=== PATIENT | male | born 1935 | race Caucasian/White ===

== ENCOUNTER 2016-09-20 10:54 | Outpatient (CLI) | payer MEDICARE, BC | END 2016-09-20 10:55 | disposition home or self-care (01) | DX: R63.4 Abnormal weight loss (principal); E55.9 Vitamin D deficiency, unspecified; F02.80 Dementia in other diseases classified elsewhere, unspecified severity, without behavioral disturbance, psychotic disturbance, mood disturbance, and anxiety ==

== ENCOUNTER 2016-09-24 08:57 | Outpatient (CLI) | payer MEDICARE, BC | END 2016-09-24 08:58 | disposition home or self-care (01) | DX: N20.0 Calculus of kidney (principal); R33.9 Retention of urine, unspecified ==

== ENCOUNTER 2016-09-27 15:06 | Outpatient (CLI) | payer MEDICARE, BC | END 2016-09-27 15:07 | disposition home or self-care (01) | DX: E53.8 Deficiency of other specified B group vitamins (principal) ==

== ENCOUNTER 2016-10-14 | Outpatient (CLI) | payer MEDICARE, BC | END 2016-10-14 11:35 | disposition critical access hospital (66) | CPT/HCPCS: A0425; A0427 ==

== ENCOUNTER 2016-10-14 11:59 | Observation (INO) | payer MEDICARE, BC ==
[2016-10-14] MEDS ORDERED: IOPAMIDOL-300 100 ML VIAL IVP ONE (14:10)
[2016-10-14] MEDS ORDERED: IOPAMIDOL-300 50 ML VIAL PO ONE (14:10)
[2016-10-14] MEDS ORDERED: PIPERACILLIN/TAZOBACTAM 3.375 GM in SODIUM CHLORIDE 0.9% MINIBAG 100 ML IV STA (14:42)
[2016-10-14] MEDS ORDERED: ONDANSETRON 4 MG/2 ML VIAL IVP PRN (15:23)
[2016-10-14] MEDS ORDERED: SODIUM CHLORIDE FLUSH 0.9% 10 ML SYRINGE IVP PRN (15:23)
[2016-10-14] MEDS: SODIUM CHLORIDE 0.9% 1,000 ML IV SCH (17:55)
[2016-10-14] MEDS: SODIUM CHLORIDE FLUSH 0.9% 10 ML SYRINGE IVP SCH (17:55)
[2016-10-14] MEDS ORDERED: KETOROLAC 15 MG/ML VIAL IVP PRN (17:59)
[2016-10-14] MEDS ORDERED: SODIUM CHLORIDE 0.9% 1,000 ML IV ONE (18:45)
[2016-10-14] MEDS ORDERED: PROMETHAZINE 12.5 MG TABLET PO PRN (18:50)
[2016-10-14] MEDS: MEMANTINE 5 MG TABLET PO SCH (19:15)
[2016-10-14] MEDS ORDERED: CYANOCOBALAMIN 1,000 MCG/ML VIAL IM ONE (19:15)
[2016-10-14] MEDS ORDERED: MIRTAZAPINE 7.5 MG PO SCH (21:00)
[2016-10-14] MEDS ORDERED: MIRTAZAPINE 15 MG TABLET PO SCH (21:00)
[2016-10-14] MEDS: FLUTICASONE NASAL SPRAY NAS SCH (21:04)
[2016-10-14] MEDS: FAMOTIDINE 20 MG/50 ML 50 ML IV SCH (21:04)
[2016-10-14] MEDS: ACETAMINOPHEN 325 MG TABLET PO PRN (21:05)
[2016-10-14] MEDS: TAMSULOSIN 0.4 MG CAPSULE PO SCH (21:13)
[2016-10-15] MEDS: SODIUM CHLORIDE 0.9% 1,000 ML IV SCH (02:36)
[2016-10-15] MEDS: SODIUM CHLORIDE FLUSH 0.9% 10 ML SYRINGE IVP SCH (06:17)
[2016-10-15] MEDS ORDERED: OMEGA-3 ACID ETHYL ESTERS 1 GM CAPSULE PO SCH (08:00)
[2016-10-15] MEDS: MEMANTINE 5 MG TABLET PO SCH (08:11)
[2016-10-15] MEDS: FAMOTIDINE 20 MG/50 ML 50 ML IV SCH (08:11)
[2016-10-15] MEDS: FLUTICASONE NASAL SPRAY NAS SCH (08:12)
[2016-10-15] MEDS: TAMSULOSIN 0.4 MG CAPSULE PO SCH (08:14)
[2016-10-15] MEDS: ACETAMINOPHEN 325 MG TABLET PO PRN (08:14)
[2016-10-15] MEDS ORDERED: BUPROPION HCL 100 MG PO SCH (09:00)
[2016-10-15] MEDS ORDERED: TAMSULOSIN 0.4 MG CAPSULE PO SCH (09:00)
[2016-10-15] MEDS ORDERED: POLYETHYLENE GLYCOL 3350 17 GM PACKET PO SCH (09:00)
[2016-10-16] MEDS ORDERED: ERGOCALCIFEROL 50,000 UNIT CAPSULE PO SCH (08:00)
== END 2016-10-15 12:04 | disposition home or self-care (01) ==
DX: N20.0 Calculus of kidney (principal); G30.0 Alzheimer's disease with early onset; F02.80 Dementia in other diseases classified elsewhere, unspecified severity, without behavioral disturbance, psychotic disturbance, mood disturbance, and anxiety; E55.9 Vitamin D deficiency, unspecified; R51 Headache; E86.0 Dehydration; K59.00 Constipation, unspecified; R33.9 Retention of urine, unspecified; R06.83 Snoring; Z79.1 Long term (current) use of non-steroidal anti-inflammatories (NSAID)
CPT/HCPCS: 36415; 74177; 76700; 80053; 81003; 82150; 82306; 82607; 83605; 83690; 83735; 84100; 84425; 84443; 85025; 85651; 86141; 96361; 96365; 96366; 96372; 96375; 99284; 99285; A9270; G0378; Q9967

== ENCOUNTER 2016-10-21 09:32 | Outpatient (CLI) | payer MEDICARE, BC | END 2016-10-21 09:33 | disposition home or self-care (01) | DX: I10 Essential (primary) hypertension (principal); R33.9 Retention of urine, unspecified; F32.9 Major depressive disorder, single episode, unspecified; E78.1 Pure hyperglyceridemia; N20.0 Calculus of kidney; N40.1 Benign prostatic hyperplasia with lower urinary tract symptoms ==

== ENCOUNTER 2016-10-22 | Outpatient (CLI) | payer MEDICARE, BC | END 2016-10-22 09:37 | disposition critical access hospital (66) | CPT/HCPCS: A0425; A0427 ==

== ENCOUNTER 2016-10-22 10:00 | Emergency (ER) | payer MEDICARE, BC ==
[2016-10-22] MEDS ORDERED: DEXAMETHASONE 10 MG/ML VIAL IVP STA (12:36)
[2016-10-22] MEDS ORDERED: cefTRIAXone 1 GM in SODIUM CHLORIDE 0.9% MINIBAG 100 ML IV STA (12:36)
[2016-10-22] MEDS ORDERED: DEXAMETHASONE 10 MG/ML VIAL ONE (12:38)
[2016-10-22] MEDS ORDERED: cefTRIAXone 1 GM VIAL ONE (12:38)
== END 2016-10-22 13:40 | disposition home or self-care (01) ==
DX: R55 Syncope and collapse (principal); R05 Cough; H66.003 Acute suppurative otitis media without spontaneous rupture of ear drum, bilateral; G30.9 Alzheimer's disease, unspecified; F02.80 Dementia in other diseases classified elsewhere, unspecified severity, without behavioral disturbance, psychotic disturbance, mood disturbance, and anxiety; Z87.891 Personal history of nicotine dependence

== ENCOUNTER 2016-10-26 09:22 | Outpatient (CLI) | payer MEDICARE, BC ==
[2016-10-26] MEDS ORDERED: SINCALIDE 1.3 MCG in SODIUM CHLORIDE 0.9% 100ML 100 ML IV ONE (12:35)
== END 2016-10-26 09:23 | disposition home or self-care (01) ==
DX: K31.89 Other diseases of stomach and duodenum (principal)
CPT/HCPCS: 78227; A9537

== ENCOUNTER 2016-11-03 15:04 | Outpatient (CLI) | payer MEDICARE, BC | END 2016-11-03 15:05 | disposition home or self-care (01) | DX: R51 Headache (principal) ==

== ENCOUNTER 2017-06-19 11:21 | Outpatient (CLI) | payer MEDICARE, BC ==
[2017-06-19] MEDS ORDERED: IOPAMIDOL-300 50 ML VIAL ONE (11:42)
[2017-06-19 12:27] LABS: CALCIUM 9.5 mg/dL (8.5-10.3); CREATININE 0.8 mg/dL (0.6-1.2); POTASSIUM 4.2 mmol/L (3.5-5.0)
[2017-06-19] MEDS ORDERED: IOPAMIDOL-300 100 ML VIAL ONE (12:42)
[2017-06-19] MEDS ORDERED: IOPAMIDOL-300 100 ML VIAL IVP ONE (14:07)
[2017-06-19] MEDS ORDERED: IOPAMIDOL-300 50 ML VIAL PO ONE (14:07)
--- NOTE | 2017-06-19 16:05 | CT Report ---
CT ABDOMEN WITH AND WITHOUT CONTRAST: 06/19/2017 CLINICAL INDICATION: Abdominal pain. COMPARISON: 10/14/2016 TECHNIQUE: Axial CT images of the abdomen were obtained prior to and following 100 mL Isovue-300 int ravenously. Oral contrast was also administered. In accordance with CT protocol optimization, one or more of the following dose reduction techniques w ere utilized for this exam: automated exposure control, adjustment of mA and/or KV based on patient size, or use of iterative reconstructive technique. FINDINGS: Limited evaluation of the lung bases is unremarkable. On the unenhanced images, there is bilateral nephrolithiasis present, with multiple nonobstructing ri ght renal calculi, the largest in the lower pole measuring 9 mm, and multiple nonobstructing left diana al calculi and a calculus in the ureteropelvic junction. The UPJ stone measures 8 mm. No hydronephr osis is appreciated. Bilateral cortical cysts are present. The liver, spleen, pancreas, and adrenal glands are unremarkable. The gallbladder is not dilated. No bowel dilatation, free gas, or free fl uid is present. No abdominal adenopathy is seen. Osseous structures demonstrate degenerative change s. IMPRESSION: BILATERAL NEPHROLITHIASIS AND A CALCULUS AT THE LEFT URETEROPELVIC JUNCTION, BUT NO EVID ENCE OF HYDRONEPHROSIS. NO OTHER EVIDENT ETIOLOGY FOR ABDOMINAL PAIN. :9 JOB #: [id number] EXT JOB #:[id number]
== END 2017-06-19 11:22 | disposition home or self-care (01) ==
LOC: LAB 11:21
PROVIDERS: ATTEND Family Medicine
DX: N20.2 Calculus of kidney with calculus of ureter (principal)
CPT/HCPCS: 36415; 74170; 80048; Q9967

== ENCOUNTER 2017-08-19 09:49 | Outpatient (CLI) | payer MEDICARE, BC | END 2017-08-19 09:50 | disposition critical access hospital (66) | LOC: EMS 09:49 | PROVIDERS: ATTEND Surgery | DX: R47.89 Other speech disturbances (principal); W19.XXXA Unspecified fall, initial encounter; Y92.003 Bedroom of unspecified non-institutional (private) residence as the place of occurrence of the external cause | CPT/HCPCS: A0425; A0427 ==

== ENCOUNTER 2017-08-19 10:14 | Emergency (ER) | payer MEDICARE, BC ==
[2017-08-19 11:03] LABS: BASOPHILS % (AUTO) 0.7 %; EOSINOPHILS % (AUTO) 0.4 %; HCT - HEMATOCRIT 43.6 % (42.0-52.0); HGB - HEMOGLOBIN 15.1 g/dL (14.0-18.0); LYMPHOCYTES % (AUTO) 14.2 %; MEAN CORPUSCULAR HEMOGLOBIN 31.2 pg (27.0-31.0); MEAN CORPUSCULAR HGB CONC 34.7 g/dL (32.0-36.0); MEAN PLATELET VOLUME 7.8 fL (7.4-11.4); MONOCYTES # (AUTO) 0.4 10^3/uL (0.0-1.0); MONOCYTES % (AUTO) 6.1 %; NEUTROPHILS # (AUTO) 5.7 10^3/uL (1.5-6.6); NEUTROPHILS % (AUTO) 78.6 %; RED BLOOD COUNT 4.84 10^6/uL (4.70-6.10); RED CELL DISTRIBUTION WIDTH 12.5 % (12.0-15.0); UNCORRECTED WHITE BLOOD COUNT 7.2 x10^3/uL; WHITE BLOOD COUNT 7.2 x10^3/uL (4.8-10.8)
--- NOTE | 2017-08-19 11:07 | CT Preliminary Report ---
Exam: CT HEAD W/O IMPRESSION: Generalized age-related cortical atrophic changes without evidence of acute intracranial abnormality. Appearance essentially unchanged compared to 09/10/2016. [facility] SITE ID: [id number]
--- NOTE | 2017-08-19 11:10 | CT Report ---
EXAM: CT HEAD EXAM DATE: 08/19/2017 11:02 AM. CLINICAL HISTORY: Aphasia. COMPARISON: 09/10/2016. TECHNIQUE: Multiaxial CT images were obtained from the foramen magnum to the vertex. Reformats: Coron al. IV contrast: None. In accordance with CT protocol optimization, one or more of the following dose reduction techniques w ere utilized for this exam: automated exposure control, adjustment of mA and/or KV based on patient s ize, or use of iterative reconstructive technique. FINDINGS: Parenchyma: No intraparenchymal hemorrhage. No evidence of mass, midline shift, or CT findings of acu te infarction. Monterroso-white differentiation is distinct. Diffuse chronic microangiopathic white matter changes are evident. Extraaxial Spaces: Normal for age. No subdural or epidural collections identified. Ventricles: The ventricles and cortical sulci are enlarged, consistent with age-related tissue loss. Sinuses and orbits: Imaged paranasal sinuses, orbits, and mastoids show no significant abnormality. Bones: No evidence of fracture or calvarial defect. Other: None. IMPRESSION: Generalized age-related cortical atrophic changes without evidence of acute intracranial abnormality. Appearance essentially unchanged compared to 09/10/2016. [facility] Referring Provider Line: [phone] SITE ID: [id number]
[2017-08-19 11:11] LABS: BILIRUBIN,TOTAL 1.3 mg/dL (0.2-1.0); CALCIUM 9.6 mg/dL (8.5-10.3); CREATININE 0.9 mg/dL (0.6-1.2); POTASSIUM 4.3 mmol/L (3.5-5.0); TOTAL PROTEIN 6.1 g/dL (6.7-8.2)
--- NOTE | 2017-08-19 11:27 | ED Physician Documentation ---
PD HPI Fall - Stated complaint Stated Complaint: SYNCOPE - Chief complaint Chief Complaint: Neuro - History obtained from History obtained from: Patient, Family - History of Present Illness Mechanism of injury: Unknown Fall distance: Standing position Where injury occurred: Home Timing - onset: Today Injury(ies) location: Other (unknown) Associated symptoms: AMS. No: LOC Similar symptoms before: No diagnosis Recently seen: Clinic - Additional information Additional information: 82-year-old male with advanced dementia was found in the closet this morning by his after she heard a thump in the house. She did not witness his fall she was not able to get him up off the ground even with the assistance of her daughter. She called 911 and the patient was transferred to the emergency department. He does have advanced dementia and today he is having some difficulty with dysarthria as well as his usual confusion. His daughter states that usually he is able to make words well, just does not make any sense. Today he is grimacing and has periodic shakes. His and daughter note that this is normal for the patient and that may be this is more than his usual amount of both of these things. He has had dementia for about 10 years and he has had a saltatory progression over the past 6 months. He has recently had more aggitation and he has been in to see Dr. Enriquez with medication adjustments. These have not been entirely successful. Review of Systems Unable to obtain: Confused, Dementia Constitutional: denies: Fever Eyes: denies: Decreased vision Ears: denies: Ear pain Nose: denies: Congestion Throat: denies: Sore throat Respiratory: denies: Cough GI: denies: Vomiting, Diarrhea PD PAST MEDICAL HISTORY - Past Medical History Neuro: Alzhiemer's, Dementia, Headache/migraine : Kidney stones - Past Surgical History Past Surgical History: No Ortho: Hip replacement, Knee replacement - Present Medications Home Medications: Ambulatory Orders Medication Instructions Recorded Confirmed Ergocalciferol [Vitamin D2] 50,000 unit PO Q7D 10/14/16 10/22/16 Fluticasone [Flonase] 1 spray TUCKER BID 10/14/16 10/22/16 Memantine HCl 10 mg PO BID 10/14/16 10/22/16 Mirtazapine 3.75 mg PO QPM 10/14/16 10/22/16 Tamsulosin HCl [Flomax] 0.4 mg PO QDDINNER 10/14/16 10/22/16 buPROPion HCl [Bupropion HCl] 50 mg PO DAILY 10/14/16 10/22/16 [place]-3 Acid Ethyl Esters [Lovaza] 1 gm PO DAILYWM #90 capsule 10/15/16 10/22/16 Azithromycin [Zithromax] 250 mg PO DAILY #6 tablet 10/22/16 Benzonatate [Tessalon] 100 - 200 mg PO TID PRN #20 capsule 10/22/16 - Allergies Allergies/Adverse Reactions: Allergies Allergy/AdvReac Type Severity Reaction Status Date / Time No Known Drug Allergies Allergy Verified 10/22/16 10:13 - Social History Does the pt smoke?: No Smoking Status: Never smoker Does the pt have substance abuse?: No PD ED PE NORMAL - Vitals Vital signs reviewed: Yes (hypertensive ) - General General: Well developed/nourished, Other (Thin strong appearing male who is confused. He will lay with his eyes closed and a lot of mobile sales consultant tone like he is in pain. This expression is verified with the patient's and daughter as normal for him when he is aggitated. ) - HEENT HEENT: Atraumatic, PERRL, EOMI, Ears normal, Moist mucous membranes - Neck Neck: Supple, no meningeal sign, No bony TTP - Cardiac Cardiac: RRR, No murmur - Respiratory Respiratory: No respiratory distress, Clear bilaterally - Abdomen Abdomen: Soft, Non tender - Back Back: No CVA TTP, No spinal TTP - Derm Derm: Normal color, Warm and dry, No rash - Extremities Extremities: No deformity, No edema - Neuro Neuro: No motor deficit, No sensory deficit Eye Opening: Spontaneous Motor: Obeys Commands Verbal: Confused GCS Score: 14 Results - Vitals Vitals: Vital Signs - 24 hr 08/19/17 08/19/17 08/19/17 10:18 11:36 12:05 Temperature 36.8 C Heart Rate 52 L 71 58 L Respiratory 16 18 16 Rate Blood Pressure 164/90 H 122/51 L 117/59 L O2 Saturation 100 98 94 08/19/17 15:25 Temperature Heart Rate 65 Respiratory 20 Rate Blood Pressure 161/88 H O2 Saturation 95 Oxygen O2 Source Room air - EKG (time done) 1027 Rate: Rate (enter#) (58) [place]: LAD Compare to prior EKG: Unchanged from prior EKG (10-22-16) Computer interpretation: Agree with computer - Labs Labs: Laboratory Tests 08/19/17 08/19/17 08/19/17 10:45 10:45 10:45 WBC 7.2 RBC 4.84 Hgb 15.1 Hct 43.6 MCV 90.0 MCH 31.2 H MCHC 34.7 RDW 12.5 Plt Count 189 MPV 7.8 Neut # 5.7 Lymph # 1.0 L [place] # 0.4 Eos # 0.0 Baso # 0.0 Absolute Nucleated RBC 0.00 Nucleated RBC % 0.0 Sodium 133 L Potassium 4.3 Chloride 96 L Carbon Dioxide 25 Anion Gap 12.0 BUN 17 Creatinine 0.9 Estimated GFR (MDRD) 81 L Glucose 114 H Calcium 9.6 Total Bilirubin 1.3 H AST 24 ALT 14 Alkaline Phosphatase 50 Troponin I < 0.04 Total Protein 6.1 L Albumin 4.1 Globulin 2.0 L Albumin/Globulin Ratio 2.0 Lipase 34 Urine Color Urine Clarity Urine pH Ur Specific [place] Urine Protein Urine Glucose (UA) Urine Ketones Urine Occult Blood Urine Nitrite Urine Bilirubin Urine Urobilinogen Ur Leukocyte Esterase Urine RBC Urine WBC Ur Squamous Epith Cells Urine Bacteria Ur Microscopic Review Urine Culture Comments 08/19/17 11:25 WBC RBC Hgb Hct MCV MCH MCHC RDW Plt Count MPV Neut # Lymph # [place] # Eos # Baso # Absolute Nucleated RBC Nucleated RBC % Sodium Potassium Chloride Carbon Dioxide Anion Gap BUN Creatinine Estimated GFR (MDRD) Glucose Calcium Total Bilirubin AST ALT Alkaline Phosphatase Troponin I Total Protein Albumin Globulin Albumin/Globulin Ratio Lipase Urine Color YELLOW Urine Clarity HAZY Urine pH 7.5 Ur Specific [place] 1.015 Urine Protein NEGATIVE Urine Glucose (UA) NEGATIVE Urine Ketones NEGATIVE Urine Occult Blood MODERATE H Urine Nitrite NEGATIVE Urine Bilirubin NEGATIVE Urine Urobilinogen 0.2 (NORMAL) Ur Leukocyte Esterase NEGATIVE Urine RBC 11-25 H Urine WBC 0-3 Ur Squamous Epith Cells NONE SEEN Urine Bacteria Moderate H Ur Microscopic Review INDICATED Urine Culture Comments INDICATED - Rads (name of study) CT head without Radiology: Prelim report reviewed (Impression: Generalized age-related cortical atrophic changes without evidence of acute intracranial abnormality. Appearance essentially unchanged compared to 09/10/2016.), EMP read indepedently , See rad report PD MEDICAL DECISION MAKING - ED course Complexity details: reviewed old records, reviewed results, re-evaluated patient , considered differential, d/w patient ED course: 82-year-old male with advanced dementia has some behavioral disorder this morning and appears quite agitated. I suspect a large part of this is just due to the fact that he is in an unfamiliar environment. He does have enough agitation that he has 2 doses of Ativan administered without much help and he subsequently administered 5 mg of Zyprexa IM. This does provide good relief for agitation and the patient falls asleep. I discussed with the patient's and daughter the advanced dementia with increasing behavioral disorder and the likely need for placement in the near future. The patient does not appear to be injured significantly from the fall he had but he does appear to have progression of his dementia. He is evaluated and medicated for agitation and then discharged to home. We did discuss with the patient's and daughter issues of placement and the social contact worker was consulted in the case. The felt comfortable taking the patient home as he was now cooperative and she would like to know the name of the medication he was administered. Departure - Departure Disposition: 01 Home, Self Care Clinical Impression: Dementia, Alzheimer's, with behavior disturbance Qualifiers: Alzheimer's disease onset: unspecified onset Qualified Code(s): G30.9 - Alzheimer's disease, unspecified Condition: Stable Instructions: ED Dementia Caregiver Support Follow-Up: RAE ENRIQUEZ MD [Primary Care Provider] - Comments: Today it appears that Sean dementia has been progressing and he is having some issues with behavioral problems. Here in the emergency department we gave him some Zyprexa which seemed to help sedate him. Talk to Dr. Enriquez about having this medication available for nighttime use. Discharge Date/Time: 08/19/17 15:33
[2017-08-19 11:38] LABS: BILIRUBIN,URINE NEGATIVE (NEGATIVE); PH,URINE 7.5 PH (5.0-7.5); UA w/ MICROSCOPIC CHARGE YES
[2017-08-19] MEDS ORDERED: LORazepam 2 MG/ML VIAL IVP STA ×2 (11:40→12:05)
[2017-08-19] MEDS ORDERED: LORazepam 2 MG/ML VIAL ONE ×2 (11:47→12:04)
[2017-08-19 11:51] LABS: UR CULTURE IF IND INDICATED; WBC,URINE 0-3 /HPF (0-3)
[2017-08-19] MEDS ORDERED: OLANZapine 10 MG VIAL IM STA (12:46)
[2017-08-19] MEDS ORDERED: OLANZapine 10 MG VIAL IM ONE (13:03)
[2017-08-19] MEDS ORDERED: WATER FOR INJECTION,STERILE 10 ML ONE (13:05)
[2017-08-19 15:25] VITALS: BP 161/88
== END 2017-08-19 15:33 | disposition home or self-care (01) ==
LOC: EDUNIT# → ED 10:14
DX: G30.9 Alzheimer's disease, unspecified (principal); F02.81 Dementia in other diseases classified elsewhere, unspecified severity, with behavioral disturbance
CPT/HCPCS: 36415; 51701; 70450; 80053; 81001; 83690; 84484; 85025; 87086; 93005; 96372; 96374; 99284; J2060; 81003

== ENCOUNTER 2017-08-23 13:43 | Outpatient (CLI) | payer MEDICARE, BC | END 2017-08-23 13:44 | disposition home or self-care (01) | LOC: LAB.R 13:43 | PROVIDERS: ATTEND Family Medicine | DX: N39.0 Urinary tract infection, site not specified (principal) | CPT/HCPCS: 87086 ==

== ENCOUNTER 2017-09-14 12:19 | Outpatient (CLI) | payer MEDICARE, BC | END 2017-09-14 12:20 | disposition home or self-care (01) | LOC: LAB.R 12:19 | PROVIDERS: ATTEND Family Medicine | DX: N39.0 Urinary tract infection, site not specified (principal) | CPT/HCPCS: 87077; 87086 ==

== ENCOUNTER 2017-09-22 08:00 | Outpatient (CLI) | payer MEDICARE, BC | END 2017-09-22 08:01 | disposition home or self-care (01) | LOC: LAB.R 08:00 | PROVIDERS: ATTEND Nurse Practitioner Family | DX: L98.9 Disorder of the skin and subcutaneous tissue, unspecified (principal) | CPT/HCPCS: 87070; 87205 ==

== ENCOUNTER 2018-05-14 12:08 | Emergency (ER) | payer MEDICARE, BC ==
[2018-05-14 12:21] VITALS: BP 114/72
[2018-05-14 13:04] LABS: BASOPHILS % (AUTO) 0.4 %; EOSINOPHILS % (AUTO) 0.3 %; HGB - HEMOGLOBIN 14.1 g/dL (14.0-18.0); LYMPHOCYTES # (AUTO) 0.7 10^3/uL (1.5-3.5); LYMPHOCYTES % (AUTO) 7.4 %; MEAN CORPUSCULAR HEMOGLOBIN 31.2 pg (27.0-31.0); MEAN CORPUSCULAR HGB CONC 34.4 g/dL (32.0-36.0); MEAN CORPUSCULAR VOLUME 90.6 fL (80.0-94.0); MEAN PLATELET VOLUME 7.5 fL (7.4-11.4); MONOCYTES # (AUTO) 0.5 10^3/uL (0.0-1.0); MONOCYTES % (AUTO) 5.1 %; NEUTROPHILS # (AUTO) 8.3 10^3/uL (1.5-6.6); NEUTROPHILS % (AUTO) 86.8 %; PLT - PLATELET COUNT 111 10^3/uL (130-450); RED BLOOD COUNT 4.52 10^6/uL (4.70-6.10); RED CELL DISTRIBUTION WIDTH 13.5 % (12.0-15.0); WHITE BLOOD COUNT 9.5 x10^3/uL (4.8-10.8)
[2018-05-14 13:19] LABS: ALBUMIN 3.6 g/dL (3.2-5.5); ALBUMIN/GLOBULIN RATIO 1.7 (1.0-2.2); BILIRUBIN,TOTAL 0.8 mg/dL (0.2-1.0); CALCIUM 8.7 mg/dL (8.5-10.3); CREATININE 1.1 mg/dL (0.6-1.2); TOTAL PROTEIN 5.7 g/dL (6.7-8.2)
[2018-05-14 13:31] LABS: BILIRUBIN,URINE NEGATIVE (NEGATIVE); GLUCOSE, URINE (UA) NEGATIVE (NEGATIVE); KETONES,URINE (UA) NEGATIVE (NEGATIVE); LEUKOCYTE ESTERASE, URINE MODERATE (NEGATIVE); NITRITE,URINE NEGATIVE (NEGATIVE); OCCULT BLOOD,URINE LARGE (NEGATIVE); PROTEIN,URINE 30 mg/dL (NEGATIVE); UROBILINOGEN,URINE 0.2 (NORMAL) E.U./dL (NORMAL)
[2018-05-14 13:35] LABS: CLARITY,URINE CLOUDY (CLEAR)
[2018-05-14 13:43] LABS: AMORPHOUS SEDIMENT,UR Few /LPF; BACTERIA,URINE Many /HPF (None Seen); SQUAMOUS EPITHELIAL CELL,UR NONE SEEN (<= Few)
[2018-05-14 13:44] LABS: CASTS, URINE 0-2 Hyaline Casts /LPF
--- NOTE | 2018-05-14 13:51 | ED Physician Documentation ---
History of Present Illness - Stated complaint Stated Complaint: MALE ,FEVER - Chief complaint Chief Complaint: Neuro - History obtained from History obtained from: Patient, Family - History of Present Illness Timing: How many weeks ago (1) - Additonal information Additional information: 83-year-old male with advanced dementia who is a resident at [facility] has developed increased agitation and urinary incontinence over the past week. These 2 symptoms have gone together previously with urinary tract infection and the family has brought him in today for evaluation. He is not having vomiting he is not having any more cough than usual for him and he has not had fever. He describes some chills. He denies back pain he denies other pains. Review of Systems Constitutional: reports: Chills. denies: Fever Eyes: denies: Decreased vision Ears: denies: Ear pain Nose: denies: Congestion Throat: denies: Sore throat Cardiac: denies: Chest pain / pressure, Palpitations Respiratory: denies: Dyspnea, Cough GI: denies: Abdominal Pain, Nausea, Vomiting : reports: Incontinent. denies: Dysuria, Frequency Skin: denies: Rash Musculoskeletal: denies: Neck pain, Back pain, Extremity pain Neurologic: denies: Generalized weakness, Focal weakness, Numbness Psychiatric: reports: Other (aggreissive aggitation) PD PAST MEDICAL HISTORY - Past Medical History Neuro: Alzhiemer's : Benign prostate hypertrophy, Kidney stones Musculoskeletal: Osteoarthritis - Past Surgical History Past Surgical History: No Ortho: Hip replacement, Knee replacement - Present Medications Home Medications: Ambulatory Orders Medication Instructions Recorded Confirmed Ergocalciferol [Vitamin D2] 50,000 unit PO Q7D 10/14/16 10/22/16 Fluticasone [Flonase] 1 spray TUCKER BID 10/14/16 10/22/16 Amox/Clav 875/125 [Augmentin] 1 each PO Q12H #14 tablet 05/14/18 Calcium Carbonate [Tums (Calcium 2 tab PO Q6HR PRN 05/14/18 05/14/18 Carbonate 500mg)] Clotrimazole [Antifungal Ringworm] 1 appful TOP DAILY 05/14/18 05/14/18 Docusate Sodium 1 tab PO DAILY 05/14/18 05/14/18 Escitalopram [Lexapro] 1 tab PO DAILY 05/14/18 05/14/18 LORazepam [Lorazepam] 1 tab PO QID PRN 05/14/18 05/14/18 Melatonin/Pyridoxine [Melatonin 5 1 tab PO DAILY PM 05/14/18 05/14/18 mg Tablet] Omeprazole [PriLOSEC] 1 tab PO DAILY 05/14/18 05/14/18 QUEtiapine [SEROquel] 0.5 tab PO DAILY 05/14/18 05/14/18 clonazePAM [Clonazepam] 1 tab PO BID PRN 05/14/18 05/14/18 - Allergies Allergies/Adverse Reactions: Allergies Allergy/AdvReac Type Severity Reaction Status Date / Time No Known Drug Allergies Allergy Verified 05/14/18 12:21 - Social History Does the pt smoke?: No Smoking Status: Never smoker Does the pt drink ETOH?: No Does the pt have substance abuse?: No - Immunizations Immunizations are current?: Yes PD ED PE NORMAL - Vitals Vital signs reviewed: Yes (normal ) - General General: No acute distress, Well developed/nourished - HEENT HEENT: Atraumatic, PERRL, EOMI - Neck Neck: Supple, no meningeal sign - Cardiac Cardiac: RRR, No murmur - Respiratory Respiratory: No respiratory distress, Clear bilaterally - Abdomen Abdomen: Soft, Non tender Results - Vitals Vitals: Vital Signs - 24 hr 05/14/18 12:16 Temperature 36.4 C L Heart Rate 68 Respiratory 18 Rate Blood Pressure 114/72 O2 Saturation 98 Oxygen O2 Source Room air - Labs Labs: Laboratory Tests 05/14/18 05/14/18 05/14/18 13:00 13:00 13:00 WBC 9.5 RBC 4.52 L Hgb 14.1 Hct 40.9 L MCV 90.6 MCH 31.2 H MCHC 34.4 RDW 13.5 Plt Count 111 L MPV 7.5 Neut # (Auto) 8.3 H Lymph # (Auto) 0.7 L [place] # (Auto) 0.5 Eos # (Auto) 0.0 Baso # (Auto) 0.0 Absolute Nucleated RBC 0.01 Nucleated RBC % 0.1 Sodium 131 L Potassium 4.2 Chloride 98 L Carbon Dioxide 29 Anion Gap 4.0 L BUN 26 H Creatinine 1.1 Estimated GFR (MDRD) 64 L Glucose 81 Lactic Acid 0.7 Calcium 8.7 Total Bilirubin 0.8 AST 36 ALT 33 Alkaline Phosphatase 48 Total Protein 5.7 L Albumin 3.6 Globulin 2.1 Albumin/Globulin Ratio 1.7 Lipase 43 Urine Color Urine Clarity Urine pH Ur Specific [place] Urine Protein Urine Glucose (UA) Urine Ketones Urine Occult Blood Urine Nitrite Urine Bilirubin Urine Urobilinogen Ur Leukocyte Esterase Urine RBC Urine WBC Ur Squamous Epith Cells Amorphous Sediment Urine Bacteria Urine Casts Ur Microscopic Review Urine Culture Comments 05/14/18 13:20 WBC RBC Hgb Hct MCV MCH MCHC RDW Plt Count MPV Neut # (Auto) Lymph # (Auto) [place] # (Auto) Eos # (Auto) Baso # (Auto) Absolute Nucleated RBC Nucleated RBC % Sodium Potassium Chloride Carbon Dioxide Anion Gap BUN Creatinine Estimated GFR (MDRD) Glucose Lactic Acid Calcium Total Bilirubin AST ALT Alkaline Phosphatase Total Protein Albumin Globulin Albumin/Globulin Ratio Lipase Urine Color YELLOW Urine Clarity CLOUDY Urine pH 6.0 Ur Specific [place] 1.015 Urine Protein 30 H Urine Glucose (UA) NEGATIVE Urine Ketones NEGATIVE Urine Occult Blood LARGE H Urine Nitrite NEGATIVE Urine Bilirubin NEGATIVE Urine Urobilinogen 0.2 (NORMAL) Ur Leukocyte Esterase MODERATE H Urine RBC 11-25 H Urine WBC >25 H Ur Squamous Epith Cells NONE SEEN Amorphous Sediment Few Urine Bacteria Many H Urine Casts 0-2 Hyaline Casts Ur Microscopic Review INDICATED Urine Culture Comments INDICATED PD MEDICAL DECISION MAKING - ED course Complexity details: reviewed old records, reviewed results, re-evaluated patient , considered differential, d/w patient, d/w family ED course: 83-year-old male with advanced dementia has had an increase in agitation and aggressive behavior and incontinence which have been hallmarks of urinary tract infection previously. Today he has urinary tract infection. - Sepsis Event Vital Signs: Vital Signs - 24 hr 05/14/18 12:16 Temperature 36.4 C L Heart Rate 68 Respiratory 18 Rate Blood Pressure 114/72 O2 Saturation 98 Oxygen O2 Source Room air Departure - Departure Disposition: Home, Self Care Clinical Impression: Urinary tract infection Qualifiers: Urinary tract infection type: acute cystitis Hematuria presence: with hematuria Qualified Code(s): N30.01 - Acute cystitis with hematuria Condition: Stable Instructions: ED UTI Cystitis Male Follow-Up: Marcial Bangura MD [Primary Care Provider] - Prescriptions: Amox/Clav 875/125 [Augmentin] 1 each PO Q12H #14 tablet
== END 2018-05-14 14:24 | disposition home or self-care (01) ==
LOC: ED 12:08
DX: N30.01 Acute cystitis with hematuria (principal)
CPT/HCPCS: 36415; 80053; 81001; 81003; 83605; 83690; 85025; 87086; 99283

== ENCOUNTER 2018-11-22 08:00 | Outpatient (CLI) | payer MEDICARE, BC ==
[2018-11-22 19:07] LABS: BASOPHILS # (AUTO) 0.1 10^3/uL (0.0-0.1); BASOPHILS % (AUTO) 0.9 %; EOSINOPHILS # (AUTO) 0.1 10^3/uL (0.0-0.7); EOSINOPHILS % (AUTO) 1.8 %; HGB - HEMOGLOBIN 15.3 g/dL (14.0-18.0); LYMPHOCYTES # (AUTO) 1.4 10^3/uL (1.5-3.5); LYMPHOCYTES % (AUTO) 19.4 %; MEAN CORPUSCULAR HEMOGLOBIN 29.7 pg (27.0-31.0); MEAN CORPUSCULAR HGB CONC 32.6 g/dL (32.0-36.0); MEAN CORPUSCULAR VOLUME 91.1 fL (80.0-94.0); MEAN PLATELET VOLUME 9.8 fL (7.4-11.4); MONOCYTES # (AUTO) 0.6 10^3/uL (0.0-1.0); MONOCYTES % (AUTO) 8.4 %; NEUTROPHILS % (AUTO) 69.5 %; PLT - PLATELET COUNT 200 10^3/uL (130-450); RED BLOOD COUNT 5.16 10^6/uL (4.70-6.10); RED CELL DISTRIBUTION WIDTH 13.4 % (12.0-15.0); WHITE BLOOD COUNT 7.2 x10^3/uL (4.8-10.8)
[2018-11-22 19:31] LABS: ALBUMIN 4.1 g/dL (3.2-5.5); ALBUMIN/GLOBULIN RATIO 1.5 (1.0-2.2); ALKALINE PHOSPHATASE 67 IU/L (42-121); ALT ALANINE AMINOTRANSFERASE 19 IU/L (10-60); AST ASPARTATE AMINOTRANSFERASE 23 IU/L (10-42); BILIRUBIN,TOTAL 0.9 mg/dL (0.2-1.0); BUN - BLOOD UREA NITROGEN 22 mg/dL (6-20); CALCIUM 9.5 mg/dL (8.5-10.3); CARBON DIOXIDE - CO2 30 mmol/L (21-32); CHLORIDE 105 mmol/L (101-111); CHOL/HDL RATIO 3.7 (<5.0); CHOLESTEROL 257 mg/dL; GFR - MDRD 72 (>89); GLUCOSE 113 mg/dL (70-100); HDL CHOLESTEROL 70 mg/dL; LDL CHOLESTEROL,CALCULATED 169 mg/dL; LDL/HDL RATIO 2.4 (<3.6); SODIUM 141 mmol/L (135-145); TOTAL PROTEIN 6.9 g/dL (6.7-8.2); VLDL CHOLESTEROL 18 mg/dL
== END 2018-11-22 23:59 ==
LOC: LAB.WCP 08:00
PROVIDERS: ATTEND Family Medicine
DX: Z00.00 Encounter for general adult medical examination without abnormal findings (principal); N40.1 Benign prostatic hyperplasia with lower urinary tract symptoms; I10 Essential (primary) hypertension; R51 Headache
CPT/HCPCS: 36415; 80061; G0103; 80053; 83721; 84153; 84443; 85025

== ENCOUNTER 2019-01-31 08:00 | Outpatient (CLI) | payer MEDICARE, BC ==
[2019-01-31 18:57] LABS: BILIRUBIN,URINE NEGATIVE (NEGATIVE); GLUCOSE, URINE (UA) NEGATIVE (NEGATIVE); KETONES,URINE (UA) NEGATIVE (NEGATIVE); LEUKOCYTE ESTERASE, URINE LARGE (NEGATIVE); NITRITE,URINE NEGATIVE (NEGATIVE); OCCULT BLOOD,URINE TRACE-INTA (NEGATIVE); PH,URINE 6.5 PH (5.0-7.5); PROTEIN,URINE TRACE mg/dL (NEGATIVE); UROBILINOGEN,URINE 0.2 (NORMAL) E.U./dL (NORMAL)
[2019-01-31 19:00] LABS: CLARITY,URINE CLOUDY (CLEAR)
[2019-01-31 19:10] LABS: BACTERIA,URINE Many /HPF (None Seen); RBC,URINE 0-5 /HPF (0-5); SQUAMOUS EPITHELIAL CELL,UR NONE SEEN (<= Few)
[2019-01-31 19:40] LABS: PSA FREE 1.63 ng/mL (0.16-2.81)
[2019-01-31 19:41] LABS: PSA TOTAL 6.79 ng/mL (0.000-2.000)
== END 2019-01-31 08:01 | disposition home or self-care (01) ==
LOC: LAB.WCP 08:00
PROVIDERS: ATTEND Family Medicine
DX: R39.9 Unspecified symptoms and signs involving the genitourinary system (principal); N40.1 Benign prostatic hyperplasia with lower urinary tract symptoms
CPT/HCPCS: 36415; 81001; 84153; 84154

== ENCOUNTER 2020-11-21 23:29 | Outpatient (CLI) | payer MEDICARE, BC | END 2020-11-21 23:30 | disposition critical access hospital (66) | LOC: EMS 23:29 | PROVIDERS: ATTEND Emergency Medicine | DX: R07.81 Pleurodynia (principal) | CPT/HCPCS: A0425; A0429 ==

== ENCOUNTER 2020-11-21 23:43 | Emergency (ER) | payer MEDICARE, BC ==
--- NOTE | 2020-11-21 23:43 | ED Physician Documentation ---
PD HPI Fall - Stated complaint Stated Complaint: GLF/ R RIB PX - History obtained from History obtained from: EMS, Caregiver - History of Present Illness Mechanism of injury: Unknown Fall distance: Unknown Where injury occurred: Other ([place]) Timing - onset: Today Quality of pain: Pain Associated symptoms: No: LOC, AMS Worsens with: Movement, Palpation Contributing factors: No: Anticoagulated - Additional information Additional information: BIBA from [facility]. patient cannot contribute to HPI/ROS due to severe dementia. Per EMS report, staff at [facility] say patient had unwitnessed fall this afternoon without LOC or AMS. He was subsequently ambulating and baseline mental status (demented), but increasingly became apparent he was having pain with movement and this was eventually localized to right chest. Review of Systems Unable to obtain: Dementia PD PAST MEDICAL HISTORY - Past Medical History Past Medical History: Yes Neuro: Dementia - Present Medications Home Medications: Ambulatory Orders Medication Instructions Recorded Confirmed Ergocalciferol [Vitamin D2] 50,000 unit PO Q7D 10/14/16 11/22/20 Fluticasone [Flonase] 1 spray TUCKER BID 10/14/16 11/22/20 Amox/Clav 875/125 [Augmentin] 1 each PO Q12H #14 tablet 05/14/18 11/22/20 Calcium Carbonate [Tums (Calcium 2 tab PO Q6HR PRN 05/14/18 11/22/20 Carbonate 500mg)] Clotrimazole [Antifungal Ringworm] 1 appful TOP DAILY 05/14/18 11/22/20 Docusate Sodium 1 tab PO DAILY 05/14/18 11/22/20 Escitalopram [Lexapro] 1 tab PO DAILY 05/14/18 11/22/20 LORazepam [Lorazepam] 1 tab PO QID PRN 05/14/18 11/22/20 Melatonin/Pyridoxine [Melatonin 5 1 tab PO DAILY PM 05/14/18 11/22/20 mg Tablet] Omeprazole [PriLOSEC] 1 tab PO DAILY 05/14/18 11/22/20 QUEtiapine [SEROquel] 0.5 tab PO DAILY 05/14/18 11/22/20 clonazePAM [Clonazepam] 1 tab PO BID PRN 05/14/18 11/22/20 - Allergies Allergies/Adverse Reactions: Allergies Allergy/AdvReac Type Severity Reaction Status Date / Time No Known Drug Allergies Allergy Verified 11/21/20 23:55 - Living Situation Living Arrangement: reports: [facility] PD ED PE NORMAL - Vitals Vital signs reviewed: Yes - General General: No acute distress, Well developed/nourished, Other (awake, alert, confused. follows few simple commands. mostly nonverbal but when he does speak, it is gibberish) - HEENT HEENT: Atraumatic, PERRL - Neck Neck: No bony TTP - Cardiac Cardiac: RRR - Respiratory Respiratory: No respiratory distress, Clear bilaterally - Abdomen Abdomen: Soft, Non tender, Non distended - Derm Derm: Normal color, Warm and dry - Extremities Extremities: No deformity, No tenderness to palpate, Normal ROM s pain - Neuro Eye Opening: Spontaneous Motor: Obeys Commands (few simple commands) Verbal: Inappropriate GCS Score: 13 PD ED PE EXPANDED - Visual Whole body visual: 1 - tenderness (TTP without crepitus) Results - Vitals Vitals: Vital Signs - 24 hr 11/21/20 11/22/20 23:50 05:39 Temperature 36.7 C Heart Rate 54 L 70 Respiratory 18 Rate Blood Pressure 160/88 H 173/80 H O2 Saturation 100 98 Oxygen O2 Source Room air - Labs Labs: Laboratory Tests 11/22/20 11/22/20 01:02 01:02 WBC 7.1 RBC 4.69 L Hgb 14.5 Hct 44.2 MCV 94.2 H MCH 30.9 MCHC 32.8 RDW 12.7 Plt Count 181 MPV 9.1 Neut # (Auto) 4.3 Lymph # (Auto) 1.6 [place] # (Auto) 0.8 Eos # (Auto) 0.3 Baso # (Auto) 0.0 Absolute Nucleated RBC 0.00 Nucleated RBC % 0.0 Sodium 137 Potassium 3.9 Chloride 103 Carbon Dioxide 25 Anion Gap 9.0 BUN 20 Creatinine 1.0 Estimated GFR (MDRD) 71 L Glucose 99 Calcium 9.3 - Rads (name of study) PA CXR with right ribs Radiology: Prelim report reviewed, See rad report CT chest with IV contrast Radiology: Prelim report reviewed, See rad report PD MEDICAL DECISION MAKING - ED course Complexity details: reviewed results, re-evaluated patient, considered differential ED course: chest/ribs xrays interpreted as 9th, 10 rib fractures. On one view, it appeared to me that a small pneumothorax was present and thus I ordered CT chest (which also would help delineate the number and location of fractures more precisely, and assess for pulmonary contusion). no pneumothorax on the CT, but 3 rib fractures visualized (6, 9, 10). cannot assess PIC score due to severe dementia but he is in NAD and ambulating in ED without assistance (tech escalator service mechanic standing next to patient to prevent fall as well as to direct him to and from bathroom). he has normal pulse ox on room air and does nor appear to have any significant painful distress including when ambulating (winces with palpation of right chest wall). his PIC score would likely be reassuring if it could be accurately assessed (would require inspiratory effort testing). his POLST indicated DNR and comfort measures only. he is safe and appropriate for discharge Departure - Departure Disposition: 01 Home, Self Care Clinical Impression: Fracture of rib Qualifiers: Encounter type: initial encounter Rib fracture type: multiple ribs Fracture type: closed Laterality: right Qualified Code(s): S22.41XA - Multiple fractures of ribs, right side, initial encounter for closed fracture Condition: Good Instructions: ED Fx Rib Follow-Up: CHERYL NARANJO ARNP [Primary Care Provider] - Discharge Date/Time: 11/22/20 05:39
[2020-11-22 01:07] LABS: BASOPHILS % (AUTO) 0.6 %; EOSINOPHILS # (AUTO) 0.3 10^3/uL (0.0-0.7); EOSINOPHILS % (AUTO) 4.7 %; HCT - HEMATOCRIT 44.2 % (42.0-52.0); HGB - HEMOGLOBIN 14.5 g/dL (14.0-18.0); LYMPHOCYTES # (AUTO) 1.6 10^3/uL (1.5-3.5); MEAN CORPUSCULAR HEMOGLOBIN 30.9 pg (27.0-31.0); MEAN CORPUSCULAR HGB CONC 32.8 g/dL (32.0-36.0); MEAN CORPUSCULAR VOLUME 94.2 fL (80.0-94.0); MEAN PLATELET VOLUME 9.1 fL (7.4-11.4); MONOCYTES # (AUTO) 0.8 10^3/uL (0.0-1.0); MONOCYTES % (AUTO) 11.4 %; NEUTROPHILS # (AUTO) 4.3 10^3/uL (1.5-6.6); NEUTROPHILS % (AUTO) 60.2 %; PLT - PLATELET COUNT 181 10^3/uL (130-450); RED BLOOD COUNT 4.69 10^6/uL (4.70-6.10); RED CELL DISTRIBUTION WIDTH 12.7 % (12.0-15.0); WHITE BLOOD COUNT 7.1 x10^3/uL (4.8-10.8)
[2020-11-22 01:15] LABS: CALCIUM 9.3 mg/dL (8.5-10.3); POTASSIUM 3.9 mmol/L (3.5-5.0)
[2020-11-22] MEDS ORDERED: IOVERSOL 320 100 ML VIAL IVP ONE ×2 (01:32→01:49)
[2020-11-22] MEDS ORDERED: ACETAMINOPHEN 325 MG TABLET PO STA (04:00)
[2020-11-22 05:43] VITALS: BP 173/80
--- NOTE | 2020-11-22 09:44 | CT Report ---
PROCEDURE: CHEST W INDICATIONS: fall, right pneumothorax CONTRAST: IV CONTRAST: Optiray 320 ml: 100 PO CONTRAST: *NO PO CONTRAST TECHNIQUE: After the administration of intravenous contrast, 5 mm thick sections acquired from the pulmonary api wendy to the posterior costophrenic angles. 7 mm thick coronal MIP reformats were acquired. For radia tion dose reduction, the following was used: automated exposure control, adjustment of mA and/or kV according to patient size. COMPARISON: None. FINDINGS: Image quality: Excellent. Lungs and pleura: No acute air space opacities. No pleural effusions or pneumothorax. Central and peripheral airways are patent and normal in caliber. Mediastinum: Heart size is normal. No pericardial effusion. No mediastinal or hilar adenopathy by size criteria. Thoracic aorta and central pulmonary arteries are normal in size. Esophagus is ban l in caliber. No hiatal hernia. Bones and chest wall: Subtle fractures of the right sixth, ninth, and 10th ribs. These are nondisplac ed. No suspicious bony lesions. No acute vertebral body compression fractures. Mild anterior wedging of multiple contiguous thoracic vertebral bodies increases thoracic kyphosis. No axillary or supracl avicular adenopathy by size criteria. Thyroid gland is unremarkable as visualized. Abdomen: Visualized upper abdominal solid organs appear normal. Upper abdominal bowel loops are nor mal in caliber. The left kidney is somewhat small and shrunken. IMPRESSION: 1. Multiple nondisplaced right-sided rib fractures. 2. No evidence of pneumothorax. 3. Incidental note made of the presence of a somewhat small and shrunken left kidney. A preliminary report with the above findings was provided at the time of the study by [facility]. Reviewed by: Reji Shoemaker MD on 11/22/2020 8:43 AM [facility] Approved by: Reji Shoemaker MD on 11/22/2020 8:43 AM [facility] Station ID: [id number]
--- NOTE | 2020-11-22 10:19 | XRAY Report ---
PROCEDURE: Ribs w/PA Chest RT INDICATIONS: fall, right rib pain TECHNIQUE: 6 views of the right ribs were acquired, along with a single view chest. COMPARISON: Chest films dated 10/22/2016 FINDINGS: Surgical changes and devices: None. Bones and chest wall: Acute right anterolateral ninth and 10th rib fractures. No suspicious bony lesi ons. Overlying soft tissues appear unremarkable. Lungs and pleura: No pleural effusions or pneumothorax. Lungs appear clear. Mediastinum: Mediastinal contours appear normal. Heart size is normal. IMPRESSION: 1. Fractures of the right anterolateral ninth and 10th ribs. 2. No evidence of pneumothorax. Reviewed by: Reji Shoemaker MD on 11/22/2020 9:18 AM [facility] Approved by: Reji Shoemaker MD on 11/22/2020 9:18 AM [facility] Station ID: [id number]
== END 2020-11-22 05:39 | disposition home or self-care (01) ==
LOC: EDUNIT# → ED 23:43
DX: S22.41XA Multiple fractures of ribs, right side, initial encounter for closed fracture (principal); W18.30XA Fall on same level, unspecified, initial encounter; Y92.129 Unspecified place in nursing home as the place of occurrence of the external cause; F03.90 Unspecified dementia, unspecified severity, without behavioral disturbance, psychotic disturbance, mood disturbance, and anxiety; Z66 Do not resuscitate
CPT/HCPCS: 36415; 71101; 71260; 80048; 85025; 99283; 99284; A9270; Q9967

== ENCOUNTER 2020-11-22 05:36 | Outpatient (CLI) | payer MEDICARE, BC | END 2020-11-22 05:37 | disposition home or self-care (01) | LOC: EMS 05:36 | PROVIDERS: ATTEND Emergency Medicine | DX: S22.41XA Multiple fractures of ribs, right side, initial encounter for closed fracture (principal); W19.XXXA Unspecified fall, initial encounter; Y92.199 Unspecified place in other specified residential institution as the place of occurrence of the external cause | CPT/HCPCS: A0425; A0428 ==